=== PATIENT | male | born 2000 | race Caucasian/White ===

== ENCOUNTER → 2018-04-12 17:30 | Outpatient (CLI) | payer OTHER, SELFPAY ==
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
== END ==
PROVIDERS: Family Provider Family Medicine; PCP Family Medicine; Visit Provider Orthopaedic Surgery Orthopaedic Surgery of the Spine
DX: S32.040A Wedge compression fracture of fourth lumbar vertebra, initial encounter for closed fracture (principal); X58.XXXA Exposure to other specified factors, initial encounter; M43.16 Spondylolisthesis, lumbar region; M48.061 Spinal stenosis, lumbar region without neurogenic claudication; M51.36 Other intervertebral disc degeneration, lumbar region
CPT/HCPCS: 72131

== ENCOUNTER → 2019-03-08 13:08 | Outpatient (CLI) | payer OTHER, SELFPAY ==
--- NOTE | 2019-03-08 13:09 | RAD_ITS ---
STUDY: X-RAY - LUMBAR SPINE REASON FOR EXAM: Male, 18 years old. Radiating low back pain TECHNIQUE: 3 view(s) of the lumbar spine were obtained. COMPARISON: Previous CT from 04/12/2018 FINDINGS: Normal lumbar lordosis. There is no substantial scoliosis. There is a normal alignment of the vertebrae. Normal vertebral bodies and endplates except for changes at L4 consistent with likely old healed compression fracture. There is wedge-shaped deformity and superior endplate irregularity unchanged from previous study. Normal disc space heights. There is no demonstrated acute fracture. No evidence of instability The soft tissue structures are unremarkable. RAD/L/S Spine Comp/w Bending Views IMPRESSION: Chronic changes at L4 suggestive of previous compression fracture. No acute findings or significant change since the previous study. Electronically Signed: Poncho Khan MD at 13:35 EDT , Service support ,
== END ==
LOC: HPRAD 13:09
PROVIDERS: Family Provider Family Medicine; PCP Family Medicine; Referring Provider Orthopaedic Surgery; Visit Provider Orthopaedic Surgery
DX: M54.9 Dorsalgia, unspecified (principal)
CPT/HCPCS: 72114

== ENCOUNTER → 2019-03-15 17:30 | Outpatient (CLI) | payer OTHER, SELFPAY ==
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
== END ==
LOC: MRI 17:30
PROVIDERS: Family Provider Family Medicine; PCP Family Medicine; Referring Provider Orthopaedic Surgery; Visit Provider Orthopaedic Surgery
DX: M54.16 Radiculopathy, lumbar region (principal)
CPT/HCPCS: 72148

== ENCOUNTER 2019-03-30 11:30 | Outpatient (RCR) | payer OTHER, SELFPAY ==
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
--- NOTE | 2019-09-29 07:22 | HP.PTDCNRP_ITS ---
HP - Discharge Summary (1) - Patient Information DEBORAH WADDELL was seen in my office for initial evaluation on 03/17/19. The following Plan of Care was established for this patient: Initial Frequency: 2x /Week Initial Duration: 8 weeks - Anticipated Interventions Patient/Client Instruction: Educate patient on: Condition, Plan of Care, Risk Factors, Benefits of Fitness Program For the Purpose of:: To foster healthy habits, To improve decision making, To facilitate caregiver knowledge, To improve self management, To prevent re- injury, To improve ability to perform tasks related to life management Therapeutic Exercise to Include: Strength training, Power training, Endurance training, Body mechanics, Postural training, Flexibilty training, In an aquatic setting, Passive ROM, Active ROM, Dynamic Lumbar Stabilization, Ridge Exercises For the Purpose of:: To decrease pain, To decrease swelling/inflammation, To increase ROM, To improve nutrient delivery to tissue, To increase oxygenation perfusion, To improve muscle performance and motor function, To improve health of tissue, To decrease soft tissue restriction, To increase flexibility/ROM Manual Therapy Techniques to Include: Mobilization, Functional dry needling, Soft tissue mobilization For the Purpose of:: To decrease pain, To decrease swelling/inflammation, To increase ROM, To improve nutrient delivery to tissue This patient was last seen in our office 03/30/19. Pertinent comments regarding their Physical therapy will appear below: Pt. was seen for his initial eval and 1 follow up. He did not attend any of the rest of his appoiintments. Pt. will be DC from PT at this point intime. At this point I will be discontinuing this patient from physical therapy. I would be happy to see this patient again in the future if found appropriate by the physician. Thank you! Otf Vargas, JAKET
== END 2019-03-30 19:00 | disposition home or self-care (01) ==
LOC: PT 11:30
PROVIDERS: Family Provider Family Medicine; PCP Family Medicine; Referring Provider Orthopaedic Surgery; Visit Provider Orthopaedic Surgery
DX: M54.5 Low back pain (principal)
CPT/HCPCS: 97113; 97161